=== PATIENT | male | born 1950 | race African-American/Black ===

== ENCOUNTER 2018-09-18 18:58 | Emergency (ER) | payer MEDICARE, OTHER ==
[~2018-09-18] VITALS: Ht 180.3 cm; Wt 84.0 kg
[~2018-09-18 18:58] MED LIST: LEXAPRO
[2018-09-18 23:24] LABS: CLARITY URINE CLEAR (CLEAR); COLOR URINE YELLOW (YELLOW); KETONES URINE 1+ (NEGATIVE); LEUKOCYTE ESTERASE URINE NEGATIVE (NEGATIVE); NITRITE URINE NEGATIVE (NEGATIVE); OCCULT BLOOD URINE NEGATIVE (NEGATIVE); PH URINE 5.5 (4.5-8.0); PROTEIN URINE NEGATIVE (NEGATIVE); SPECIFIC GRAVITY URINE 1.016 (1.005-1.030)
[2018-09-18 23:26] LABS: BASOPHILS % 0.3 % (0.0-2.0); EOSINOPHILS % 0.2 % (0.0-5.0); HEMATOCRIT. 45.7 % (42.0-52.0); HEMOGLOBIN. 14.9 g/dL (14.0-18.0); LYMPHOCYTES % 13.9 % (20.0-50.0); MEAN CORPUSCULAR VOLUME 82.7 fL (80.0-94.0); MEAN PLATELET VOLUME 10.1 fl (7.4-10.4); MONOCYTES % 12.4 % (2.0-8.0); NEUTROPHILS % 73.2 % (40.0-76.0); PLATELET 153 x1000/uL (130-400); RED BLOOD CELL COUNT 5.53 mill/uL (4.7-6.1)
[2018-09-18 23:54] LABS: CHLORIDE 99 mEq/L (98-107)
[2018-09-19 00:51] VITALS: BP 157/83
== END 2018-09-19 00:52 | disposition home or self-care (01) ==
LOC: ER 18:58
DX: B34.9 Viral infection, unspecified (principal); R50.81 Fever presenting with conditions classified elsewhere; I10 Essential (primary) hypertension; I25.10 Atherosclerotic heart disease of native coronary artery without angina pectoris; Z88.8 Allergy status to other drugs, medicaments and biological substances; Z79.899 Other long term (current) drug therapy
CPT/HCPCS: 36415; 71045; 80048; 87804; 99284

== ENCOUNTER 2023-06-11 20:31 | Emergency (ER) | payer MEDICARE ==
[~2023-06-11] VITALS: Ht 180.3 cm; Wt 96.0 kg
[2023-06-11 20:35] VITALS: TEMP 98.3; O2SAT 96
[2023-06-11] MEDS ORDERED: HYDRALAZINE HCL 50MG TABLET PO ONE (21:00)
[2023-06-11 21:33] VITALS: BP 163/72; PULSE 102; RESP 17
== END 2023-06-11 21:42 | disposition home or self-care (01) ==
LOC: ER 20:31
DX: R04.0 Epistaxis (principal); I10 Essential (primary) hypertension; Z88.8 Allergy status to other drugs, medicaments and biological substances; Z98.890 Other specified postprocedural states
CPT/HCPCS: 99281

== ENCOUNTER 2025-02-19 13:32 | Emergency (ER) | payer MEDICARE, MEDICAID ==
[~2025-02-19] VITALS: Ht 175.3 cm; Wt 85.0 kg
[2025-02-19 13:34] VITALS: O2SAT 98
[2025-02-19] MEDS: SODIUM CHLORIDE 0.9% 1,000 ML IV ONE (14:00)
[2025-02-19] MEDS ORDERED: MECLIZINE 25MG TABLET PO ONE (14:00)
[2025-02-19 14:11] LABS: BASOPHILS % 0.8 % (0.0-2.0); EOSINOPHILS % 3.9 % (0.0-5.0); HEMATOCRIT. 41.7 % (42.0-52.0); HEMOGLOBIN. 13.5 g/dL (14.0-18.0); LYMPHOCYTES % 29.2 % (20.0-50.0); MEAN PLATELET VOLUME 10.0 fl (7.4-10.4); MONOCYTES % 10.6 % (2.0-8.0); NEUTROPHILS % 55.5 % (40.0-76.0); PLATELET 169 x1000/uL (130-400); RED BLOOD CELL COUNT 4.96 mill/uL (4.7-6.1); RED CELL DISTRIBUTION WIDTH 14.7 % (11.6-14.6)
[2025-02-19 14:26] LABS: CREATININE 1.2 mg/dL (0.6-1.3); TROPONIN I HIGH SENSITIVITY 19 ng/L (3.0-53)
[2025-02-19 14:27] LABS: UREA NITROGEN BLOOD 16 mg/dL (9-23)
[2025-02-19 14:28] LABS: ASPARTATE AMINOTRANSFERASE 17 IU/L (<34)
[2025-02-19 14:29] LABS: BILIRUBIN DIRECT 0.3 mg/dL (<=3.0); BILIRUBIN TOTAL 0.8 mg/dL (0.1-1.0); INR 1.1; PROTEIN TOTAL 7.3 g/dL (6.0-8.3)
[2025-02-19] MEDS: MECLIZINE 25MG TABLET PO SCH (15:11)
[2025-02-19 16:16] VITALS: BP 142/86; PULSE 96; RESP 18; TEMP 36.8; O2SAT 98
== END 2025-02-19 16:17 | disposition home or self-care (01) ==
LOC: ER 13:32 → CMPBEDREQ 17:03
DX: R53.1 Weakness (principal); R42 Dizziness and giddiness; I10 Essential (primary) hypertension; Z88.8 Allergy status to other drugs, medicaments and biological substances; Z95.5 Presence of coronary angioplasty implant and graft; Z79.899 Other long term (current) drug therapy; Z98.890 Other specified postprocedural states
CPT/HCPCS: 99285; 96360; 70450; 71045; 80076; 80048; 85025; 85610; 85730; 84484; 36415; 93005; J8597; J7030